=== PATIENT | male | born 1985 | race Caucasian/White ===

== ENCOUNTER 2021-09-14 07:39 | Outpatient (CLI) | payer OTHER ==
[~2021-09-14] VITALS: Ht 152.5 cm; Wt 69.6 kg
[2021-09-14] MEDS ORDERED: ALLEGRA 180MG180 MG PO (07:49)
[2021-09-14] MEDS ORDERED: MULTI VITAMINS1 TAB PO (07:49)
[2021-09-14 08:44] VITALS: BP 115/84; PULSE 48; TEMP 98.2
[2021-09-14 08:45] LABS: HEMOGLOBIN 14.5 g/dl (13.5-18.0); MEAN CELL VOLUME 89 fl (80.0-100.0); MEAN CORPUSCULAR HEMOGLOBIN 31 pg (27-31); MEAN CORPUSCULAR HGB CONC 35 g/dl (33.0-37.0); MEAN PLATELET VOLUME 10.2 fl (7.4-10.4); PLATELET COUNT 195 K/mm3 (130-400); RED BLOOD COUNT 4.73 M/mm3 (4.20-5.60); REDCELL DISTRIBUTION WIDTH-CV 12.3 % (11.5-14.5)
[2021-09-14 08:53] LABS: INR 1.1 (0.8-3.0); PROTHROMBIN TIME 12.5 SECONDS (9.7-12.8)
[2021-09-14 09:01] LABS: CALCIUM 9.2 mg/dL (8.4-10.2); CREATININE, serum 0.91 mg/dL (0.72-1.25); POTASSIUM 4.2 mmol/L (3.5-4.5)
[2021-09-14 10:15] VITALS: BP 101/77; PULSE 48
[2021-09-14 10:30] VITALS: BP 111/74; PULSE 50
[2021-09-14 10:45] VITALS: BP 108/79; PULSE 57
[2021-09-14 11:00] VITALS: BP 113/75; PULSE 50
[2021-09-14 11:15] VITALS: BP 112/85; PULSE 47
--- NOTE | 2021-09-14 11:30 | NUR ---
DC instructions reviewed with pt and , both express understanding. Pt has tolerated PO fluids, no trouble swallowing. He is steady on feet in room. IV DC'd, site wrapped with coban. He is assisted out to 's car by wheelchair.
== END 2021-09-14 11:30 | disposition home or self-care (01) ==
LOC: COL.RAD 07:39
PROVIDERS: Internal Medicine Adult Congenital Heart Disease
DX: I49.9 Cardiac arrhythmia, unspecified (principal); R94.31 Abnormal electrocardiogram [ECG] [EKG]
CPT/HCPCS: J2704

== ENCOUNTER → 2021-10-13 | Outpatient (CLI) | payer OTHER ==
[~2021-10-13] MED LIST: ALLEGRA 180MG180 MG PO; MULTI VITAMINS1 TAB PO
== END ==
LOC: COL.RAD 10:49
DX: I35.1 Nonrheumatic aortic (valve) insufficiency (principal)
CPT/HCPCS: Q9967